=== PATIENT | male | born 1960 | race Caucasian/White ===

== ENCOUNTER → 2023-07-04 06:24 | Day surgery (SDC) | payer BC, SELFPAY | LOC: GI 06:24 | PROVIDERS: ATTENDING PHYSICIAN Internal Medicine | DX: K21.00 Gastro-esophageal reflux disease with esophagitis, without bleeding (principal); K44.9 Diaphragmatic hernia without obstruction or gangrene; K22.70 Barrett's esophagus without dysplasia; K22.89 Other specified disease of esophagus; K29.60 Other gastritis without bleeding | CPT/HCPCS: 43239; 88305; 88342 ==

== ENCOUNTER → 2023-07-24 08:37 | Outpatient (REF) | payer BC, SELFPAY ==
[2023-07-24 10:20] LABS: ALT (SGPT) 27 U/L (0-50); AST (SGOT) 29 U/L (17-59); Albumin 4.1 g/dl (3.5-5.0); Alkaline Phosphatase 80 U/L (38-126); Blood Urea Nitrogen 44 mg/dl (9-20); Calcium 9.1 mg/dl (8.4-10.2); Carbon Dioxide 29 mmol/L (22-30); Chloride 103 mmol/L (98-107); Glucose 197 mg/dl (70-99); Sodium 138 mmol/L (135-145); Total Bilirubin 0.6 mg/dl (0.2-1.3); Total Protein 6.9 g/dl (6.3-8.2); eGFR > 60.00
[2023-07-24 11:03] LABS: Microalbumin, Random Urine 0.8 mg/dl (0.6-1.7)
[2023-07-24 13:07] LABS: Glycohemoglobin (HgbA1c) 8.3 % (4.0-5.6)
== END ==
LOC: HWLAB 08:37
PROVIDERS: ATTENDING PHYSICIAN Family Medicine; REFERRING PHYSICIAN Internal Medicine Interventional Cardiology
DX: E11.69 Type 2 diabetes mellitus with other specified complication (principal)
CPT/HCPCS: 36415; 80053; 82043; 82570; 83036

== ENCOUNTER → 2023-09-13 07:43 | Outpatient (REF) | payer BC, SELFPAY | LOC: HWRAD 07:43 | PROVIDERS: ATTENDING PHYSICIAN Nurse Practitioner; FAMILY PHYSICIAN Family Medicine; REFERRING PHYSICIAN Urology | DX: N50.82 Scrotal pain (principal) | CPT/HCPCS: 76870; 93976 ==

== ENCOUNTER 2023-10-19 12:47 | Emergency (ER) | payer BC, SELFPAY ==
[2023-10-19 12:50] VITALS: BP 155/108
[2023-10-19 13:15] LABS: Urine Albumin Negative (Neg - Trace); Urine Bilirubin Negative (Negative); Urine Character Clear (Clear); Urine Color Yellow; Urine Glucose Negative (Negative); Urine Ketone Negative (Negative); Urine Leukocyte Negative (Negative); Urine Nitrite Negative (Negative); Urine Occult Blood Negative (Negative); Urine Urobilinogen Negative (Neg - 1+)
[2023-10-19 13:16] LABS: % Basophils 0.8 % (0-2); % Eosinophils 5.3 % (0-6); % Immature Granulocytes 0.6 % (0-0.5); % Lymphocytes 14.7 % (20.5-51.1); % Neutrophils 69.6 % (42.2-75.2); Absolute Basophils 0.1 10^3/uL (0-0.2); Absolute Eosinophils 0.6 10^3/uL (0-0.7); Absolute Immature Granulocytes 0.1 10^3/uL (0-0.05); Absolute Lymphocytes 1.8 10^3/uL (1.2-3.4); Absolute Monocytes 1.1 10^3/uL (0.1-0.6); Absolute Neutrophils 8.4 10^3/uL (1.4-6.5); Hematocrit 52.1 % (39.0-52.0); Hemoglobin 17.5 g/dL (13.0-18.0); Mean Corp Hgb Conc. 33.6 g/dL (33.0-37.0); Mean Corpuscular Hgb 30.1 pg (27.0-31.0); Mean Corpuscular Volume 89.7 fL (80.0-94.0); Mean Platelet Volume 9.8 fL (7.4-10.4); Nucleated Red Blood Cells % 0 % (-); Platelet Count 232 10^3/uL (130-400); Red Blood Cell Count 5.81 10^6/uL (4.70-6.10); Red Cell Dist. Width 13.8 % (11.5-14.5); White Blood Cell Count 12.1 10^3/uL (4.8-10.8)
[2023-10-19 13:26] LABS: ALT (SGPT) 24 U/L (0-50); AST (SGOT) 29 U/L (17-59); Albumin 4.2 g/dl (3.5-5.0); Alkaline Phosphatase 83 U/L (38-126); Blood Urea Nitrogen 36 mg/dl (9-20); Calcium 9.7 mg/dl (8.4-10.2); Carbon Dioxide 28 mmol/L (22-30); Chloride 101 mmol/L (98-107); Glucose 139 mg/dl (70-99); Lipase 65 U/L (23-300); Sodium 137 mmol/L (135-145); Total Bilirubin 0.9 mg/dl (0.2-1.3); Total Protein 7.4 g/dl (6.3-8.2); eGFR > 60.00
[2023-10-19 14:40] VITALS: BMI 38.5
[2023-10-19 14:41] VITALS: BP 136/86
[2023-10-19] MEDS: NSS 1000 IV (15:16)
--- NOTE | 2023-10-19 16:35 | ED.GENMED ---
History of Present Illness
General
Chief Complaint: Flank Pain
Time Seen by Provider: 10/19/23 14:56
Travel History
Have you had any contact with someone who has COVID-19?: No
Do you have any symptoms of coronavirus? Fever > 100 degrees, chills, cough, shortness of breath, sore throat, loss of taste or smell, muscle aches, or headache?: No
History of Present Illness
History of Present Illness:
62-year-old male with remote history of renal cell cancer status post partial nephrectomy presents to the emergency department for evaluation of right flank pain ongoing for the past 2 to 3 days. Pain is intermittent in nature. He is concerned
predominantly because it is on the same side as his partial nephrectomy. Denies any dysuria or hematuria. No fevers, chills, or night sweats.
Past History
Past History
ED Past Medical History: Arrthythmia (History of PVCs), Asthma, CAD, Cancer (Renal carcinoma), GERD, HTN, Hypercholesterolemia, Other (Diverticulitis w/ bladder fistual 2007) and Other (Pneumonia, sleep apnea)
ED Past Surgical History: Bowel resection, Cardiac, Cholecystectomy, Orthopedic, Tonsilectomy and Urological
Patient has exhibited threatening behavior?: No
PSI?: No
Social History
Tobacco: Non-smoker
Alcohol: Occasional
Drug: None
Personal: Single
Living: with family
Employment: Employed
Family History
Family History: Early CAD
Review of Systems
Review of Systems
Allergies reviewed?: Yes
All Other Systems: ROS reviewed and negative except as documented in HPI and ROS
Phy Exam
Physical Exam
Physical Exam:
GEN: Well appearing, NAD, WDWN
HEENT: Oral mucosa moist, no scleral icterus
Cardiac: Regular rate
Lung: No respiratory distress, no tachypnea
Abdomen: Soft, nontender, no rigidity, no CVA tenderness bilaterally.
MSK: No gross deformity or injuries. Mild tenderness along the right thoracic paraspinous musculature/latissimus dorsi, the right Lat appears to be swollen and stiff for than the contralateral side
Skin: Good color, no pallor or jaundice, no rashes
Neuro: AO x3, moves all extremities freely
Psych: Calm, cooperative
Course
Orders/Labs/Results
Orders:
Orders
10/19/23 13:00
Complete Blood Count/With Diff Urgent
Comprehensive Metabolic Panel Urgent
Lipase Urgent
10/19/23 13:05
Urinalysis Reflex To Culture Urgent
Date Specimen was Collected: 10/19/23
Time Specimen was Collected: 12:52
10/19/23 15:05
CT Abd/Pel (IV only)-DH only Urgent
Comment:
Reason For Exam: R flank pain prior renal CA
0.9% Sodium Chloride 1000 ml [Nss] 1,000 ml IV BOLUS
Abnormal Lab Results
10/19/23
13:00
WBC 12.1 H 10^3/uL
(4.8-10.8)
Hct 52.1 H %
(39.0-52.0)
Abs Immat Gran (auto) 0.1 H 10^3/uL
(0-0.05)
Absolute Neuts (auto) 8.4 H 10^3/uL
(1.4-6.5)
Absolute Monos (auto) 1.1 H 10^3/uL
(0.1-0.6)
Immature Gran % 0.6 H %
(0-0.5)
Lymphocytes % 14.7 L %
(20.5-51.1)
BUN 36 H mg/dl
(9-20)
Glucose 139 H mg/dl
(70-99)
10/19/23 13:00
10/19/23 13:00
Vital Signs
Initial and Last Documented VS:
Initial Vital Signs
Temp Pulse Resp BP Pulse Ox
99.1 F 70 18 155/108 93
10/19/23 12:50 10/19/23 12:50 10/19/23 12:50 10/19/23 12:50 10/19/23 12:50
Last Documented Vital Signs
Temp Pulse Resp BP Pulse Ox
99.1 F 60 16 120/89 95
10/19/23 12:50 10/19/23 16:49 10/19/23 16:49 10/19/23 16:49 10/19/23 16:49
MDM/Problems Addressed
MDM/Problems Addressed:
Workup was unrevealing, urinalysis negative. No abnormalities associated with the right kidney, discussed supportive care, likely musculoskeletal in origin
*Critical Care Note
Total Time (30-74mins, 75-104mins- exclusive of procedures): Not Applicable
ED Attending Note
-
Portions of this chart may have been created with voice recognition software.� Occasional wrong word or��sound alike� substitutions may have occurred due to the inherent limitations of voice recognition software.
Discharge Plan
Departure
Patient Disposition: Home (Routine Discharge)
Date of Disposition: 10/19/23
Time of Disposition: 16:35
Patient with high blood pressure during this ER visit?: No
Discharge Problem:
Acute right flank pain
Instructions: Back Muscle Strain (DC)
Prescriptions:
No Action
atorvastatin 20 MG tablet
20 mg PO DAILY@1200
aspirin 81 MG tablet,delayed release (DR/EC)
81 mg PO DAILY@1200
albuterol sulfate 2.5 MG/3 ML solution for nebulization
2.5 mg inhalation R Q4HPRN PRN (Reason: cough/wheeze) Qty: 20 0RF
pantoprazole 40 MG tablet,delayed release (DR/EC)
40 mg PO BID
montelukast 10 MG tablet
10 mg PO DAILY@1200
albuterol sulfate 1 PUFF HFA aerosol inhaler
2 puff inhalation R Q4HPRN PRN (Reason: sob/ wheeze)
atenolol 50 MG tablet
100 mg PO DAILY@1200
melatonin 5 MG tablet
5 mg PO DAILY@1200
turmeric root extract 500 MG capsule
1,000 mg PO DAILY@1200
multivitamin with folic acid [Tab-A-Adri] 1 TABLET tablet
1 tab PO DAILY@1200
Breztri Aerosphere 10.7 GM HFA aerosol inhaler
2 puff inhalation R BID
chlorthalidone 25 mg Tablet
12.5 mg PO DAILY@1200
olmesartan 40 mg Tablet
40 mg PO DAILY@1200
Xiidra 5 % Dropperette
1 drp BOTH EYES BID
Metamucil Fiber Singles 1 PACKET powder in packet
1 packet PO DAILY@1200
Saline Nasal Mist 0.65 % Aerosol,[place]
2 spray INTRANASAL PRN PRN (Reason: Dyness)
diphenhydramine HCl [Benadryl] 25 mg Capsule
25 mg PO HS PRN (Reason: sleep)
acetaminophen-codeine [acetaminophen-codeine] 300-30 mg tablet
1 - 2 tab PO Q4HPRN PRN (Reason: Mod-severe pain) Qty: 30 0RF
methylprednisolone [Medrol (Wagner)] 4 mg tablets,dose pack
4 tab PO . DIRECT Qty: 1 0RF
Rx Instructions:
Start 07/04/2019
doxycycline hyclate 100 mg tablet
100 mg PO BID 10 Days Qty: 20 0RF
methylprednisolone [Medrol (Wagner)] 4 mg tablets,dose pack
See Rx Instructions .ROUTE .COMPLEX Qty: 21 0RF
Rx Instructions:
orally per package directions
Referrals:
Mario Cmobs MD [Family Provider] -
Activity Restrictions/Additional Instructions:
Take anti-inflammatories as needed for pain and gently stretch the area frequently. The symptoms are most likely muscular. You have a cyst on the right kidney that was seen on MRI previously and is felt to be benign
Interventions
Interventions:
*Risk Screen - Suicide Last Done: 10/19/23 14:35
*General Assessment Last Done: 10/19/23 14:40
*Neglect/Abuse Screening Last Done: 10/19/23 14:35
ED- Fall Risk Assessment Last Done: 10/19/23 17:04
*ED COVID-19 Vaccine History Last Done: 10/19/23 14:35
*Nursing Disposition Last Done: 10/19/23 17:04
BP-Twavof-Ovstpwwtnf Assessment Last Done: 10/19/23 14:35
ED-Male Genitourinary Assessment Last Done: 10/19/23 14:35
Discharge Date and Time
Discharge Date/Time: 10/19/23 17:04
Print Language: URUGUAYAN
[2023-10-19 16:49] VITALS: BP 120/89
== END 2023-10-19 17:04 | disposition home or self-care (01) ==
LOC: EMR 12:47
PROVIDERS: Emergency Medicine; EMERGENCY PHYSICIAN Emergency Medicine; FAMILY PHYSICIAN Family Medicine
DX: R10.9 Unspecified abdominal pain (principal); I25.10 Atherosclerotic heart disease of native coronary artery without angina pectoris; E78.00 Pure hypercholesterolemia, unspecified; K21.9 Gastro-esophageal reflux disease without esophagitis; I10 Essential (primary) hypertension; G47.30 Sleep apnea, unspecified; J45.909 Unspecified asthma, uncomplicated; K57.92 Diverticulitis of intestine, part unspecified, without perforation or abscess without bleeding; Z85.528 Personal history of other malignant neoplasm of kidney; Z87.01 Personal history of pneumonia (recurrent); Z90.5 Acquired absence of kidney; Z90.49 Acquired absence of other specified parts of digestive tract; Z88.1 Allergy status to other antibiotic agents; Z88.8 Allergy status to other drugs, medicaments and biological substances; Z91.048 Other nonmedicinal substance allergy status; Z79.82 Long term (current) use of aspirin
CPT/HCPCS: 99285; 96360; 74177; 80053; 81003; 83690; 85025; Q9967

== ENCOUNTER → 2023-11-11 07:02 | Outpatient (REF) | payer BC, SELFPAY ==
[2023-11-11 07:56] LABS: ALT (SGPT) 21 U/L (0-50); AST (SGOT) 26 U/L (17-59); Albumin 4.2 g/dl (3.5-5.0); Alkaline Phosphatase 79 U/L (38-126); Blood Urea Nitrogen 46 mg/dl (9-20); Calcium 9.5 mg/dl (8.4-10.2); Carbon Dioxide 26 mmol/L (22-30); Chloride 103 mmol/L (98-107); Glucose 122 mg/dl (70-99); HDL Cholesterol 38 mg/dl; LDL Cholesterol, Calculated 60 mg/dl; Potassium 3.9 mmol/L (3.5-5.1); Sodium 140 mmol/L (135-145); Total Bilirubin 0.9 mg/dl (0.2-1.3); Total Cholesterol 122 mg/dl (50-199); Total Protein 7.2 g/dl (6.3-8.2); Triglyceride 121 mg/dl (10-149); Very Low Density Lipoprotein 24 mg/dl (0-30); eGFR > 60.00
[2023-11-11 08:27] LABS: PSA, Total - Screen 0.55 ng/ml (0.0-4.0)
[2023-11-11 08:28] LABS: % Basophils 1.1 % (0-2); % Eosinophils 8.9 % (0-6); % Immature Granulocytes 0.5 % (0-0.5); % Lymphocytes 21.2 % (20.5-51.1); % Monocytes 8.4 % (1.7-9.3); % Neutrophils 59.9 % (42.2-75.2); Absolute Basophils 0.1 10^3/uL (0-0.2); Absolute Eosinophils 0.9 10^3/uL (0-0.7); Absolute Immature Granulocytes 0.1 10^3/uL (0-0.05); Absolute Lymphocytes 2.2 10^3/uL (1.2-3.4); Absolute Monocytes 0.9 10^3/uL (0.1-0.6); Absolute Neutrophils 6.3 10^3/uL (1.4-6.5); Hematocrit 54.2 % (39.0-52.0); Hemoglobin 17.8 g/dL (13.0-18.0); Mean Corp Hgb Conc. 32.8 g/dL (33.0-37.0); Mean Corpuscular Volume 91.4 fL (80.0-94.0); Mean Platelet Volume 10.2 fL (7.4-10.4); Nucleated Red Blood Cells % 0 % (-); Platelet Count 189 10^3/uL (130-400); Red Blood Cell Count 5.93 10^6/uL (4.70-6.10); White Blood Cell Count 10.6 10^3/uL (4.8-10.8)
[2023-11-11 11:05] LABS: Glycohemoglobin (HgbA1c) 6.4 % (4.0-5.6)
== END ==
LOC: REG 07:02
PROVIDERS: ATTENDING PHYSICIAN Urology; FAMILY PHYSICIAN Family Medicine
DX: E11.69 Type 2 diabetes mellitus with other specified complication (principal); Z00.00 Encounter for general adult medical examination without abnormal findings; Z85.528 Personal history of other malignant neoplasm of kidney; N28.1 Cyst of kidney, acquired
CPT/HCPCS: 36415; 80053; 80061; 83036; 85025; G0103

== ENCOUNTER → 2023-11-22 07:35 | Outpatient (REF) | payer BC, SELFPAY | LOC: PAVMRI 07:35 | PROVIDERS: ATTENDING PHYSICIAN Urology; FAMILY PHYSICIAN Family Medicine | DX: N28.1 Cyst of kidney, acquired (principal); Z85.528 Personal history of other malignant neoplasm of kidney | CPT/HCPCS: 74183; A9575 ==

== ENCOUNTER → 2023-12-19 08:18 | Outpatient (REF) | payer BC, SELFPAY ==
--- NOTE | 2023-12-19 09:50 | CARDSERVLU ---
Addendum entered by Hilda Gorman RN 12/19/23 11:07:
INT removed and dsg applied. Pressure held. No bleeding noted.
Original Note:
Echocardiogram with Lumason completed after protocol screening completed. Allergies verified.
Patent IV site: __left upper arm inserted by IV team___
IV site flushed with 0.9% NaCl pre and post administration.
Diluted bolus method utilized to enhance visualization of ventricular [place].
Total volume given: ___4.0 mL
Patient tolerated all procedures well without complications.
== END ==
LOC: RCS 08:18
PROVIDERS: ATTENDING PHYSICIAN Internal Medicine Interventional Cardiology; FAMILY PHYSICIAN Family Medicine
DX: I10 Essential (primary) hypertension (principal); I25.10 Atherosclerotic heart disease of native coronary artery without angina pectoris; R29.818 Other symptoms and signs involving the nervous system
CPT/HCPCS: 93306; Q9950

== ENCOUNTER → 2024-02-10 07:07 | Outpatient (REF) | payer BC, SELFPAY ==
[2024-02-10 08:54] LABS: % Basophils 1.2 % (0-2); % Eosinophils 6.9 % (0-6); % Immature Granulocytes 0.6 % (0-0.5); % Lymphocytes 21.3 % (20.5-51.1); % Monocytes 8.4 % (1.7-9.3); % Neutrophils 61.6 % (42.2-75.2); Absolute Basophils 0.1 10^3/uL (0-0.2); Absolute Eosinophils 0.6 10^3/uL (0-0.7); Absolute Immature Granulocytes 0.1 10^3/uL (0-0.05); Absolute Lymphocytes 1.9 10^3/uL (1.2-3.4); Absolute Monocytes 0.8 10^3/uL (0.1-0.6); Absolute Neutrophils 5.6 10^3/uL (1.4-6.5); Hematocrit 51.8 % (39.0-52.0); Hemoglobin 17.9 g/dL (13.0-18.0); Mean Corp Hgb Conc. 34.6 g/dL (33.0-37.0); Mean Corpuscular Hgb 30.9 pg (27.0-31.0); Mean Corpuscular Volume 89.3 fL (80.0-94.0); Mean Platelet Volume 9.9 fL (7.4-10.4); Nucleated Red Blood Cells % 0 % (-); Platelet Count 171 10^3/uL (130-400); Red Cell Dist. Width 13.7 % (11.5-14.5); White Blood Cell Count 9.1 10^3/uL (4.8-10.8)
[2024-02-10 09:11] LABS: ALT (SGPT) 24 U/L (0-50); AST (SGOT) 25 U/L (17-59); Albumin 4.1 g/dl (3.5-5.0); Alkaline Phosphatase 86 U/L (38-126); Blood Urea Nitrogen 32 mg/dl (9-20); Calcium 9.4 mg/dl (8.4-10.2); Carbon Dioxide 30 mmol/L (22-30); Chloride 99 mmol/L (98-107); Glucose 151 mg/dl (70-99); Sodium 139 mmol/L (135-145); Total Protein 6.8 g/dl (6.3-8.2); eGFR > 60.00
[2024-02-10 09:42] LABS: PSA, Total - Screen 0.52 ng/ml (0.0-4.0)
[2024-02-10 11:00] LABS: Glycohemoglobin (HgbA1c) 7.4 % (4.0-5.6)
== END ==
LOC: REG 07:07
PROVIDERS: ATTENDING PHYSICIAN Urology; FAMILY PHYSICIAN Family Medicine; REFERRING PHYSICIAN Internal Medicine Interventional Cardiology
DX: Z85.528 Personal history of other malignant neoplasm of kidney (principal); E11.69 Type 2 diabetes mellitus with other specified complication; E78.00 Pure hypercholesterolemia, unspecified
CPT/HCPCS: 36415; 80053; 83036; 85025; G0103

== ENCOUNTER 2024-03-06 00:55 | Emergency (ER) | payer BC, SELFPAY ==
[2024-03-06 00:58] VITALS: BP 171/107
--- NOTE | 2024-03-06 04:07 | DOWNTIME ---
There was a [employer] Downtime on 02/07/2024 from 0100 to 02/07/2024 at 0300. Downtime documentation of patient's care, including medication administrations, has been reconciled in the electronic record per guidelines. Refer to the
patient's paper chart under the miscellaneous tab to see printed paper medication records and downtime forms.
--- NOTE | 2024-03-06 16:53 | ED.MUSCINJ ---
HPI-Injury
General
Chief Complaint: Musculo-Skeletal Complaint
Source: patient
Exam Limitations: none
Nursing documentation reviewed up to this point in time: agreed with
History of Present Illness-Injury
Is this injury a work related problem?: No
Is pt an associate of [facility]?: No
Initial Injury comments:
Patient to ED with complaint of left knee pain. Reports intermittent mild discomfort over the past few days. Today difficulty walking due to pain. Denies fever/chills, recent illness. No history of trauma. Brought self to ED for eval.
Past History
Past History
ED Past Medical History: Arrthythmia (History of PVCs), Asthma, CAD, Cancer (Renal carcinoma), GERD, HTN, Hypercholesterolemia, Other (Diverticulitis w/ bladder fistual 2007) and Other (Pneumonia, sleep apnea)
ED Past Surgical History: Bowel resection, Cardiac, Cholecystectomy, Orthopedic, Tonsilectomy and Urological
Patient has exhibited threatening behavior?: No
PSI?: No
Social History
Tobacco: Non-smoker
Alcohol: Occasional
Drug: None
Personal: Single
Living: with family
Employment: Employed
Family History
Family History: Early CAD
Review of Systems
Review of Systems
Allergies reviewed?: Yes
All Other Systems: ROS reviewed and negative except as documented in HPI and ROS
Constitutional: Reports no symptoms
Musculoskeletal: Reports joint pain (Pain to leflt knee)
Skin: Reports no symptoms
Neurological: Reports no symptoms
Psychiatric: Reports no symptoms
Musculoskeletal Injury Exam
Musculoskeletal Injury Exam
Left Medial Knee:
Pain with Movement?: Moderate
Tender to palpation?: Moderate
Soft tissue swelling?: None
External deformity and angulation?: None
Joint effusion?: None
Contusion?: None
Hematoma-local bleeding into tissue?: None
Strain- Sprain- Tear (Connective tissue injury)?: Moderate
Crepitus with movement?: No
Joint instability?: No
Malalignment/deformity?: No
Range of motion: Limited
Distal skin color and temperature: normal-warm & good color
Capillary Refill: normal
Normal distal neurovascular exam?: Yes
Phy Exam
General Physical Exam
General Presentation: well appearing and mild distress
General age: appears stated age
General Skin: warm and dry
General Habitus: normal
General Mental: alert
General Hydration: appears well hydrated
Musculoskeletal Exam
Musculoskeletal Exam: neuro vasc intact
Skin Exam
Skin Exam: normal color, warm/dry and no rash
Psychiatric Exam
Psychiatric Exam: normal mood/affect
Injury Course
Orders/Labs/Results
Orders:
Orders
03/06/24 01:30
CR Knee - Left 4 Or More View* Urgent
Reason For Exam: pain
*Radiology
Radiology exam reviewed: radiology read reviewed
*Pulse Oximetry
Patient hypoxic: no
*Critical Care Note
Total Time (30-74mins, 75-104mins- exclusive of procedures): Not Applicable
ED Attending Note
-
Portions of this chart may have been created with voice recognition software.� Occasional wrong word or��sound alike� substitutions may have occurred due to the inherent limitations of voice recognition software.
Discharge Plan
Departure
Patient Disposition: Home (Routine Discharge)
Patient with high blood pressure during this ER visit?: No
Condition: Good
Covid-19: Not Applicable
Discharge Problem:
Knee pain
Instructions: Knee Pain (DC), Knee Immobilizer (DC), Ibuprofen, Using Cold for Pain
Prescriptions:
No Action
atorvastatin 20 MG tablet
20 mg PO DAILY@1200
aspirin 81 MG tablet,delayed release (DR/EC)
81 mg PO DAILY@1200
albuterol sulfate 2.5 MG/3 ML solution for nebulization
2.5 mg inhalation R Q4HPRN PRN (Reason: cough/wheeze) Qty: 20 0RF
pantoprazole 40 MG tablet,delayed release (DR/EC)
40 mg PO BID
montelukast 10 MG tablet
10 mg PO DAILY@1200
albuterol sulfate 1 PUFF HFA aerosol inhaler
2 puff inhalation R Q4HPRN PRN (Reason: sob/ wheeze)
atenolol 50 MG tablet
100 mg PO DAILY@1200
melatonin 5 MG tablet
5 mg PO DAILY@1200
turmeric root extract 500 MG capsule
1,000 mg PO DAILY@1200
multivitamin with folic acid [Tab-A-Adri] 1 TABLET tablet
1 tab PO DAILY@1200
Breztri Aerosphere 10.7 GM HFA aerosol inhaler
2 puff inhalation R BID
chlorthalidone 25 mg Tablet
12.5 mg PO DAILY@1200
olmesartan 40 mg Tablet
40 mg PO DAILY@1200
Xiidra 5 % Dropperette
1 drp BOTH EYES BID
Metamucil Fiber Singles 1 PACKET powder in packet
1 packet PO DAILY@1200
Saline Nasal Mist 0.65 % Aerosol,[place]
2 spray INTRANASAL PRN PRN (Reason: Dyness)
diphenhydramine HCl [Benadryl] 25 mg Capsule
25 mg PO HS PRN (Reason: sleep)
acetaminophen-codeine [acetaminophen-codeine] 300-30 mg tablet
1 - 2 tab PO Q4HPRN PRN (Reason: Mod-severe pain) Qty: 30 0RF
methylprednisolone [Medrol (Wagner)] 4 mg tablets,dose pack
4 tab PO . DIRECT Qty: 1 0RF
Rx Instructions:
Start 07/04/2019
doxycycline hyclate 100 mg tablet
100 mg PO BID 10 Days Qty: 20 0RF
methylprednisolone [Medrol (Wagner)] 4 mg tablets,dose pack
See Rx Instructions .ROUTE .COMPLEX Qty: 21 0RF
Rx Instructions:
orally per package directions
Referrals:
PRIVATE,PHYSICIAN [Family Provider] -
Activity Restrictions/Additional Instructions:
Follow up with your orthopedic provider through [facility].
Interventions
Interventions:
*Risk Screen - Suicide Last Done: 03/06/24 00:58
*General Assessment Last Done: 03/06/24 00:58
*Neglect/Abuse Screening Last Done: 03/06/24 00:58
*Nursing Disposition Last Done: 03/06/24 04:13
Discharge Date and Time
Discharge Date/Time: 03/06/24 03:00
Print Language: KENYAN
== END 2024-03-06 03:00 | disposition home or self-care (01) ==
LOC: EMR 00:55
PROVIDERS: EMERGENCY PHYSICIAN Student in an Organized Health Care Education/Training Program
DX: M25.562 Pain in left knee (principal); I49.3 Ventricular premature depolarization; J45.909 Unspecified asthma, uncomplicated; I25.10 Atherosclerotic heart disease of native coronary artery without angina pectoris; K21.9 Gastro-esophageal reflux disease without esophagitis; I10 Essential (primary) hypertension; E78.00 Pure hypercholesterolemia, unspecified; G47.30 Sleep apnea, unspecified; Z82.49 Family history of ischemic heart disease and other diseases of the circulatory system; Z85.528 Personal history of other malignant neoplasm of kidney; Z90.49 Acquired absence of other specified parts of digestive tract
CPT/HCPCS: 99283; 73564

== ENCOUNTER → 2024-05-18 06:54 | Outpatient (REF) | payer BC, SELFPAY | LOC: MRI 3T 06:54 | PROVIDERS: ATTENDING PHYSICIAN Physician Assistant Surgical; FAMILY PHYSICIAN Family Medicine | DX: M54.2 Cervicalgia (principal); M54.12 Radiculopathy, cervical region; M50.10 Cervical disc disorder with radiculopathy, unspecified cervical region | CPT/HCPCS: 72141 ==

== ENCOUNTER → 2024-05-31 07:39 | Outpatient (REF) | payer BC, SELFPAY ==
[2024-05-31 08:50] LABS: ALT (SGPT) 27 U/L (0-50); AST (SGOT) 28 U/L (17-59); Albumin 4.6 g/dl (3.5-5.0); Alkaline Phosphatase 82 U/L (38-126); Blood Urea Nitrogen 31 mg/dl (9-20); Calcium 9.3 mg/dl (8.4-10.2); Carbon Dioxide 31 mmol/L (22-30); Chloride 97 mmol/L (98-107); Glucose 130 mg/dl (70-99); Potassium 3.9 mmol/L (3.5-5.1); Sodium 138 mmol/L (135-145); Total Bilirubin 1.2 mg/dl (0.2-1.3); Total Protein 7.5 g/dl (6.3-8.2); eGFR > 60.00
[2024-05-31 08:56] LABS: Microalbumin, Random Urine 1.2 mg/dl (0.6-1.7); Microalbumin/creatinine Ratio 12.2 mg/g
[2024-05-31 12:14] LABS: Glycohemoglobin (HgbA1c) 7.3 % (4.0-5.6)
== END ==
LOC: REG 07:39
PROVIDERS: ATTENDING PHYSICIAN Family Medicine
DX: E11.69 Type 2 diabetes mellitus with other specified complication (principal)
CPT/HCPCS: 36415; 80053; 82043; 82570; 83036

== ENCOUNTER 2024-07-11 07:31 | Emergency (ER) | payer BC, SELFPAY ==
[2024-07-11 07:41] VITALS: BP 144/87
[2024-07-11 08:39] VITALS: BP 155/92
[2024-07-11 08:48] LABS: % Basophils 1.2 % (0-2); % Eosinophils 7.8 % (0-6); % Immature Granulocytes 1.3 % (0-0.5); % Lymphocytes 19.9 % (20.5-51.1); % Monocytes 9.2 % (1.7-9.3); % Neutrophils 60.6 % (42.2-75.2); Absolute Basophils 0.1 10^3/uL (0-0.2); Absolute Eosinophils 0.8 10^3/uL (0-0.7); Absolute Immature Granulocytes 0.1 10^3/uL (0-0.05); Absolute Lymphocytes 2.2 10^3/uL (1.2-3.4); Absolute Neutrophils 6.6 10^3/uL (1.4-6.5); Hematocrit 52.3 % (39.0-52.0); Hemoglobin 18.1 g/dL (13.0-18.0); Mean Corp Hgb Conc. 34.6 g/dL (33.0-37.0); Mean Corpuscular Hgb 31.5 pg (27.0-31.0); Mean Corpuscular Volume 91.1 fL (80.0-94.0); Mean Platelet Volume 9.7 fL (7.4-10.4); Nucleated Red Blood Cells % 0 % (-); Platelet Count 210 10^3/uL (130-400); Red Blood Cell Count 5.74 10^6/uL (4.70-6.10); Red Cell Dist. Width 13.2 % (11.5-14.5); White Blood Cell Count 10.8 10^3/uL (4.8-10.8)
[2024-07-11 09:00] VITALS: BP 143/83
[2024-07-11 09:02] LABS: ALT (SGPT) 25 U/L (0-50); AST (SGOT) 23 U/L (17-59); Albumin 4.2 g/dl (3.5-5.0); Alkaline Phosphatase 78 U/L (38-126); Blood Urea Nitrogen 42 mg/dl (9-20); Calcium 9.3 mg/dl (8.4-10.2); Carbon Dioxide 28 mmol/L (22-30); Chloride 100 mmol/L (98-107); Glucose 201 mg/dl (70-99); Potassium 4.1 mmol/L (3.5-5.1); Sodium 137 mmol/L (135-145); Total Bilirubin 0.9 mg/dl (0.2-1.3); eGFR > 60.00
--- NOTE | 2024-07-11 09:09 | ED.GENMED ---
History of Present Illness
General
Chief Complaint: Dizziness
Time Seen by Provider: 07/11/24 08:08
History of Present Illness
History of Present Illness:
Patient is a 63-year-old man presenting to the emerged department with dizziness that is resolved. Patient states that he was about to go work his overnight shift when he put his head back to put eyedrops in. Soon as he put his head back he felt
as if the room was spinning. He got up and the symptoms resolved. He was able to work without any symptoms. He states that he does feel slightly off but cannot exactly pinpoint it. No headache. No dizziness. No numbness tingling. No weakness.
No balance problems. No vision changes or hearing changes. No chest pain. No difficulty breathing. He does state that has been having significant amount of congestion and thinks that it could be contributing to the dizziness.
Past History
Past History
ED Past Medical History: Arrthythmia (History of PVCs), Asthma, CAD, Cancer (Renal carcinoma), GERD, HTN, Hypercholesterolemia, Other (Diverticulitis w/ bladder fistual 2007) and Other (Pneumonia, sleep apnea)
ED Past Surgical History: Bowel resection, Cardiac, Cholecystectomy, Orthopedic, Tonsilectomy and Urological
Patient has exhibited threatening behavior?: No
PSI?: No
Social History
Tobacco: Non-smoker
Alcohol: Occasional
Drug: None
Personal: Single
Living: with family
Employment: Employed
Family History
Family History: Early CAD
Phy Exam
Physical Exam
Physical Exam:
GENERAL: in no acute distress
HEENT: normocephalic, extraocular movements intact, moist oral mucosa
NECK: normal inspection
RESPIRATORY: no respiratory distress, clear to auscultation bilaterally
CARDIOVASCULAR: regular rate and rhythm
ABDOMEN/: soft, non-distended, non-tender to palpation, no rebound or guarding
EXTREMITIES: non-tender, no edema/swelling
NEUROLOGIC: alert and oriented x 3, cranial nerves II-XII intact, right upper extremity strength 5/5, left upper extremity strength 5/5, right lower extremity strength 5/5, left lower extremity strength 5/5, normal sensation to light touch, normal
zmvtiz-la-saaz and azte-re-zyjp, gait not tested formally
SKIN: warm
Course
Orders/Labs/Results
Orders:
Orders
07/11/24 07:55
EKG [Electrocardiogram (*1)] Urgent
Reason for Study: Chest Pain
EKG- Treatment ONCE
07/11/24 08:29
Complete Blood Count/With Diff Urgent
Comprehensive Metabolic Panel Urgent
Abnormal Lab Results
07/11/24
08:29
Hgb 18.1 H g/dL
(13.0-18.0)
Hct 52.3 H %
(39.0-52.0)
MCH 31.5 H pg
(27.0-31.0)
Abs Immat Gran (auto) 0.1 H 10^3/uL
(0-0.05)
Absolute Neuts (auto) 6.6 H 10^3/uL
(1.4-6.5)
Absolute Monos (auto) 1.0 H 10^3/uL
(0.1-0.6)
Absolute Eos (auto) 0.8 H 10^3/uL
(0-0.7)
Immature Gran % 1.3 H %
(0-0.5)
Lymphocytes % 19.9 L %
(20.5-51.1)
Eosinophils % 7.8 H %
(0-6)
BUN 42 H mg/dl
(9-20)
Glucose 201 H mg/dl
(70-99)
07/11/24 08:29
07/11/24 08:29
Vital Signs
Initial and Last Documented VS:
Initial Vital Signs
Temp Pulse Resp BP Pulse Ox
99.3 F 78 18 144/87 97
07/11/24 07:41 07/11/24 07:41 07/11/24 07:41 07/11/24 07:41 07/11/24 07:41
Last Documented Vital Signs
Temp Pulse Resp BP Pulse Ox
99.3 F 78 18 144/87 97
07/11/24 07:41 07/11/24 07:41 07/11/24 07:41 07/11/24 07:41 07/11/24 07:41
MDM/Problems Addressed
Differential Diagnosis Includes:
Patient is a 63-year-old man presenting to the emergency department dizziness that since resolved. Vitals unremarkable and exam shows no neurodeficits. History and exam is most consistent with peripheral cause of dizziness. It is positional and
new onset and stopping was abrupt. Likely BP PV versus secondary to the congestion. History and exam not consistent with central cause of vertigo such as stroke or tumor or carotid/vertebral artery problems. Blood work was obtained. His blood
sugar is slightly elevated. He does state that he has been followed by his primary care doctor. He is not on any medications just yet. Patient will follow-up with his PCP regarding elevated blood sugar today. EKG per my interpretation normal
sinus rhythm. I did consider obtaining a CT scan however patient is asymptomatic at this time and symptoms were produced by specific motion. I did educate patient on the Alok maneuver. Will also send patient home with prescription for meclizine
in case symptoms were to not improve after the maneuver. All questions answered. Patient stable for discharge at this time
*Critical Care Note
Total Time (30-74mins, 75-104mins- exclusive of procedures): Not Applicable
ED Attending Note
-
Portions of this chart may have been created with voice recognition software.� Occasional wrong word or��sound alike� substitutions may have occurred due to the inherent limitations of voice recognition software.
Discharge Plan
Departure
Patient Disposition: Home (Routine Discharge)
Date of Disposition: 07/11/24
Time of Disposition: 09:07
Patient with high blood pressure during this ER visit?: No
Discharge Problem:
Dizziness, Elevated blood sugar
Instructions: Vertigo (a Type of Dizziness) (DC), Exercises (maneuvers) for benign paroxysmal positional vertigo
Prescriptions:
New
meclizine 25 mg tablet
25 mg PO BID PRN (Reason: dizziness) Qty: 14 0RF
No Action
atorvastatin 20 MG tablet
20 mg PO DAILY@1200
aspirin 81 MG tablet,delayed release (DR/EC)
81 mg PO DAILY@1200
albuterol sulfate 2.5 MG/3 ML solution for nebulization
2.5 mg inhalation R Q4HPRN PRN (Reason: cough/wheeze) Qty: 20 0RF
pantoprazole 40 MG tablet,delayed release (DR/EC)
40 mg PO BID
montelukast 10 MG tablet
10 mg PO DAILY@1200
albuterol sulfate 1 PUFF HFA aerosol inhaler
2 puff inhalation R Q4HPRN PRN (Reason: sob/ wheeze)
atenolol 50 MG tablet
100 mg PO DAILY@1200
melatonin 5 MG tablet
5 mg PO DAILY@1200
turmeric root extract 500 MG capsule
1,000 mg PO DAILY@1200
multivitamin with folic acid [Tab-A-Adri] 1 TABLET tablet
1 tab PO DAILY@1200
Breztri Aerosphere 10.7 GM HFA aerosol inhaler
2 puff inhalation R BID
chlorthalidone 25 mg Tablet
12.5 mg PO DAILY@1200
olmesartan 40 mg Tablet
40 mg PO DAILY@1200
Xiidra 5 % Dropperette
1 drp BOTH EYES BID
Metamucil Fiber Singles 1 PACKET powder in packet
1 packet PO DAILY@1200
Saline Nasal Mist 0.65 % Aerosol,[place]
2 spray INTRANASAL PRN PRN (Reason: Dyness)
diphenhydramine HCl [Benadryl] 25 mg Capsule
25 mg PO HS PRN (Reason: sleep)
acetaminophen-codeine [acetaminophen-codeine] 300-30 mg tablet
1 - 2 tab PO Q4HPRN PRN (Reason: Mod-severe pain) Qty: 30 0RF
methylprednisolone [Medrol (Wagner)] 4 mg tablets,dose pack
4 tab PO . DIRECT Qty: 1 0RF
Rx Instructions:
Start 07/04/2019
doxycycline hyclate 100 mg tablet
100 mg PO BID 10 Days Qty: 20 0RF
methylprednisolone [Medrol (Wagner)] 4 mg tablets,dose pack
See Rx Instructions .ROUTE .COMPLEX Qty: 21 0RF
Rx Instructions:
orally per package directions
Interventions
Interventions:
*Risk Screen - Suicide Last Done: 07/11/24 07:41
*General Assessment Last Done: 07/11/24 07:41
*Neglect/Abuse Screening Last Done: 07/11/24 07:41
*ED COVID-19 Vaccine History Last Done: 07/11/24 07:41
Discharge Date and Time
Print Language: TELUGU
== END 2024-07-11 09:30 | disposition home or self-care (01) ==
LOC: EMR 07:31
PROVIDERS: Student in an Organized Health Care Education/Training Program; EMERGENCY PHYSICIAN Student in an Organized Health Care Education/Training Program; FAMILY PHYSICIAN Family Medicine
DX: R42 Dizziness and giddiness (principal); R73.9 Hyperglycemia, unspecified; E78.00 Pure hypercholesterolemia, unspecified; I10 Essential (primary) hypertension; G47.30 Sleep apnea, unspecified; I25.10 Atherosclerotic heart disease of native coronary artery without angina pectoris; J45.909 Unspecified asthma, uncomplicated; K21.9 Gastro-esophageal reflux disease without esophagitis; Z85.528 Personal history of other malignant neoplasm of kidney; Z90.49 Acquired absence of other specified parts of digestive tract
CPT/HCPCS: 99284; 80053; 85025; 93005

== ENCOUNTER → 2024-07-19 07:35 | Outpatient (REF) | payer BC, SELFPAY | LOC: MRI 3T 07:35 | PROVIDERS: ATTENDING PHYSICIAN Urology; FAMILY PHYSICIAN Family Medicine | DX: Z85.528 Personal history of other malignant neoplasm of kidney (principal) | CPT/HCPCS: 74183; A9575 ==

== ENCOUNTER → 2024-09-10 07:44 | Outpatient (REF) | payer BC, SELFPAY ==
[2024-09-10 08:39] LABS: % Basophils 0.9 % (0-2); % Eosinophils 6.9 % (0-6); % Immature Granulocytes 0.4 % (0-0.5); % Lymphocytes 20.5 % (20.5-51.1); % Monocytes 8.5 % (1.7-9.3); % Neutrophils 62.8 % (42.2-75.2); Absolute Basophils 0.1 10^3/uL (0-0.2); Absolute Eosinophils 0.7 10^3/uL (0-0.7); Absolute Lymphocytes 2.2 10^3/uL (1.2-3.4); Absolute Monocytes 0.9 10^3/uL (0.1-0.6); Absolute Neutrophils 6.7 10^3/uL (1.4-6.5); Hematocrit 49.8 % (39.0-52.0); Hemoglobin 17.3 g/dL (13.0-18.0); Mean Corp Hgb Conc. 34.7 g/dL (33.0-37.0); Mean Corpuscular Hgb 31.5 pg (27.0-31.0); Mean Corpuscular Volume 90.5 fL (80.0-94.0); Mean Platelet Volume 10.3 fL (7.4-10.4); Nucleated Red Blood Cells % 0 % (-); Platelet Count 183 10^3/uL (130-400); White Blood Cell Count 10.7 10^3/uL (4.8-10.8)
[2024-09-10 09:09] LABS: ALT (SGPT) 27 U/L (0-50); AST (SGOT) 23 U/L (17-59); Albumin 4.2 g/dl (3.5-5.0); Alkaline Phosphatase 90 U/L (38-126); Blood Urea Nitrogen 34 mg/dl (9-20); Calcium 9.6 mg/dl (8.4-10.2); Carbon Dioxide 27 mmol/L (22-30); Chloride 101 mmol/L (98-107); Glucose 155 mg/dl (70-99); Iron 106 ug/dl (49-181); Potassium 3.9 mmol/L (3.5-5.1); Sodium 137 mmol/L (135-145); Total Bilirubin 1.2 mg/dl (0.2-1.3); Total Protein 6.8 g/dl (6.3-8.2); eGFR > 60.00
[2024-09-10 09:19] LABS: Percent Saturation 29 % (20-50); Total Iron Binding Capacity 362 ug/dl (261-462)
[2024-09-10 09:42] LABS: Ferritin 47.1 ng/ml (17.9-464.0)
[2024-09-10 10:09] LABS: Glycohemoglobin (HgbA1c) 7.2 % (4.0-5.6)
== END ==
LOC: REG 07:44
PROVIDERS: ATTENDING PHYSICIAN Family Medicine
DX: I10 Essential (primary) hypertension (principal); E11.69 Type 2 diabetes mellitus with other specified complication; E78.00 Pure hypercholesterolemia, unspecified; D58.2 Other hemoglobinopathies
CPT/HCPCS: 36415; 80053; 82728; 83036; 83540; 83550; 85025

== ENCOUNTER → 2024-09-27 07:57 | Outpatient (REF) | payer BC, SELFPAY | LOC: CLAB 07:57 | PROVIDERS: ATTENDING PHYSICIAN Physician Assistant Medical | DX: D48.5 Neoplasm of uncertain behavior of skin (principal) | CPT/HCPCS: 88305 ==

== ENCOUNTER 2024-11-03 01:56 | Emergency (ER) | payer BC, SELFPAY ==
[2024-11-03 01:56] VITALS: BP 175/101
--- NOTE | 2024-11-03 03:42 | ED.GENMED ---
History of Present Illness
General
Chief Complaint: Eye Problems
Source: patient
Exam Limitations: none
Time Seen by Provider: 11/03/24 03:20
Nursing documentation reviewed up to this point in time: agreed with
History of Present Illness
History of Present Illness:
Note:
CHIEF COMPLAINT(S)
- Redness in the eye following use of Restasis drops
- Tingling in the scalp
- Right ear feels like it wants to drain
HISTORY OF PRESENT ILLNESS
The patient is a 63-year-old male who reports experiencing redness in the eye after the application of Restasis drops prescribed for severe dry eye. The symptoms of dry eye include crustiness and stickiness, and an cuffer mentioned the
possibility of 'eye mite' involvement. He also mentions his right ear feels like it wants to drain but is possibly related to sinus issues. About two months ago, the patient experienced a severe episode of vertigo over two nights, which a previous
physician attributed to an inner ear issue.
REVIEW OF SYSTEMS
- Eye: Severe dry eye, redness after using Restasis, crustiness, and potential 'eye mite.'
- Neurological: Tingling in the scalp, numbness in feet.
- Vascular: Occasional swelling in ankles.
- Auditory: Right ear feels like it is draining.
- Musculoskeletal: Past neck issue treated with medication.
PHYSICAL EXAM
- Eye: Hemorrhagic appearance in the affected left eye.
- Ears: Clear bilaterally without cerumen.
- Nursing notes reviewed and vital signs reviewed.
PLAN
Subconjunctival hemorrhage�nothing to do at this time. Follow-up with school bus attendant
DIFFERENTIAL DIAGNOSIS
The Differential Diagnosis includes, in no particular order and is not limited to:
1. Ocular surface disease
2. Conjunctival hemorrhage
3. Blepharitis (possibly secondary to eye mites)
4. Peripheral neuropathy
5. Venous insufficiency
6. Sinusitis
7. Inner ear condition (such as labrynthitis)
8. Allergic reaction to Restasis
9. Hypertension
10. Migraine-associated vertigo
Disposition:
DIAGNOSIS
- Subconjunctival hemorrhage (H11.32)
SUMMARY OF ENCOUNTER
63-year-old male presents with subconjunctival hemorrhage in the left eye. He had recently visited his school bus attendant for severe dry eye, and Restasis was prescribed. Following the use of Restasis, the patient experienced redness in the eye. He was
advised to stop using Restasis until a follow-up with the school bus attendant.
DISPOSITION
Discharge
PLAN
Discontinue Restasis until follow-up with an school bus attendant for further evaluation and management.
MEDICATION RECONCILIATION
- Restasis: Discontinued temporarily.
MEDICAL DECISION MAKING
The patient presented with an acute issue of subconjunctival hemorrhage, and management included stopping the current medication (Restasis) suspected of being associated with the issue. Follow-up instructions were provided to ensure proper ongoing
care with an school bus attendant. The care plan considered medication management in light of the new symptom presentation.
Past History
Past History
ED Past Medical History: Arrthythmia (History of PVCs), Asthma, CAD, Cancer (Renal carcinoma), GERD, HTN, Hypercholesterolemia, Other (Diverticulitis w/ bladder fistual 2007) and Other (Pneumonia, sleep apnea)
ED Past Surgical History: Bowel resection, Cardiac, Cholecystectomy, Orthopedic, Tonsilectomy and Urological
Patient has exhibited threatening behavior?: No
PSI?: No
Social History
Tobacco: Non-smoker
Alcohol: Occasional
Drug: None
Personal: Single
Living: with family
Employment: Employed
Family History
Family History: Early CAD
Phy Exam
General Physical Exam
General Presentation: well appearing and no apparent distress
General Skin: warm and dry
General Habitus: normal
General Mental: alert
General Hydration: appears well hydrated
ENT Exam
ENT Exam: EOMI, pharynx normal, neck supple and normocephalic
Eye Exam
Eye Exam: PERRL and EOMI
Anterior Chamber Exam: layered blood in chamber: Left
Type of Exam: fluorescein
Tonometry: Side: Left
Pressure: 14
Pulmonary Exam
Pulmonary Exam: no respiratory distress and no cough
Gastrointestinal Exam
Gastrointestinal Exam: normal bowel sounds, non tender, soft, no organomegaly, no pulsatile mass and non distended
Neurological Exam
Neurological Exam: alert, oriented x3, no motor deficits and speech normal
Musculoskeletal Exam
Musculoskeletal Exam: full ROM and no edema
Skin Exam
Skin Exam: normal color, warm/dry, no rash and no petechia
Psychiatric Exam
Psychiatric Exam: normal mood/affect
Course
Vital Signs
Initial and Last Documented VS:
Initial Vital Signs
Temp Pulse Resp BP Pulse Ox
98.1 F 97 18 175/101 99
11/03/24 01:56 11/03/24 01:56 11/03/24 01:56 11/03/24 01:56 11/03/24 01:56
Last Documented Vital Signs
Temp Pulse Resp BP Pulse Ox
98.1 F 97 18 175/101 99
11/03/24 01:56 11/03/24 01:56 11/03/24 01:56 11/03/24 01:56 11/03/24 01:56
*Pulse Oximetry
Patient hypoxic: no (99% on room air)
*Critical Care Note
Total Time (30-74mins, 75-104mins- exclusive of procedures): Not Applicable
ED Attending Note
-
Portions of this chart may have been created with voice recognition software.� Occasional wrong word or��sound alike� substitutions may have occurred due to the inherent limitations of voice recognition software.
Discharge Plan
Departure
Patient Disposition: Home (Routine Discharge)
Date of Disposition: 11/03/24
Time of Disposition: 03:51
Patient with high blood pressure during this ER visit?: Yes
Discharge Problem:
Subconjunctival hematoma
Instructions: Subconjunctival Hemorrhage, BLOOD PRESSURE
Prescriptions:
No Action
atorvastatin 20 MG tablet
20 mg PO DAILY@1200
aspirin 81 MG tablet,delayed release (DR/EC)
81 mg PO DAILY@1200
albuterol sulfate 2.5 MG/3 ML solution for nebulization
2.5 mg inhalation R Q4HPRN PRN (Reason: cough/wheeze) Qty: 20 0RF
pantoprazole 40 MG tablet,delayed release (DR/EC)
40 mg PO BID
montelukast 10 MG tablet
10 mg PO DAILY@1200
albuterol sulfate 1 PUFF HFA aerosol inhaler
2 puff inhalation R Q4HPRN PRN (Reason: sob/ wheeze)
atenolol 50 MG tablet
100 mg PO DAILY@1200
melatonin 5 MG tablet
5 mg PO DAILY@1200
turmeric root extract 500 MG capsule
1,000 mg PO DAILY@1200
multivitamin with folic acid [Tab-A-Adri] 1 TABLET tablet
1 tab PO DAILY@1200
Breztri Aerosphere 10.7 GM HFA aerosol inhaler
2 puff inhalation R BID
chlorthalidone 25 mg Tablet
12.5 mg PO DAILY@1200
olmesartan 40 mg Tablet
40 mg PO DAILY@1200
Xiidra 5 % Dropperette
1 drp BOTH EYES BID
Metamucil Fiber (aspartame) 1 PACKET powder in packet
1 packet PO DAILY@1200
Saline Nasal Mist 0.65 % Aerosol,Scobey
2 spray INTRANASAL PRN PRN (Reason: Dyness)
diphenhydramine HCl [Benadryl] 25 mg Capsule
25 mg PO HS PRN (Reason: sleep)
acetaminophen-codeine [acetaminophen-codeine] 300-30 mg tablet
1 - 2 tab PO Q4HPRN PRN (Reason: Mod-severe pain) Qty: 30 0RF
methylprednisolone [Medrol (Wagner)] 4 mg tablets,dose pack
4 tab PO . DIRECT Qty: 1 0RF
Rx Instructions:
Start 07/04/2019
doxycycline hyclate 100 mg tablet
100 mg PO BID 10 Days Qty: 20 0RF
methylprednisolone [Medrol (Wagner)] 4 mg tablets,dose pack
See Rx Instructions .ROUTE .COMPLEX Qty: 21 0RF
Rx Instructions:
orally per package directions
meclizine 25 mg tablet
25 mg PO BID PRN (Reason: dizziness) Qty: 14 0RF
Referrals:
Mario Combs MD [Family Provider, [facility]]
Activity Restrictions/Additional Instructions:
As discussed, please follow-up with your school bus attendant. Do not take the Restasis until cleared by optometry.
Thank You for choosing [facility].
It was a pleasure meeting you and taking part in your care. We hope for your continued healing and wellness.
Please read discharge instructions in their entirety. However, they are for general education and may not describe your exact diagnosis at discharge. Information on your ER visit and medical conditions were discussed with you along with appropriate
follow up information...
If indicated, please take your medications as instructed and indicated on discharge paperwork.
Please schedule a follow up appointment as directed. Call to schedule an appointment
Please return to the emergency department with ANY change in, persisting, or worsening of symptoms. If any of your symptoms do not improve, or persist, or become more severe within 6-12 hours, please return to the emergency department for further
care.
Please return to the emergency department if you develop a headache, neck pain/stiffness, fever greater than 100.4F, chest pain, shortness of breath, persistent nausea, vomiting, slurred speech, difficulty walking, numbness/tingling, weakness, signs
of infection or any other symptoms that are worrisome to you.
If you have any questions or concerns please do not hesitate to call the Hospital at or E-mail me directly at [email or web address]
Interventions
Interventions:
*Risk Screen - Suicide Last Done: 11/03/24 01:56
*General Assessment Last Done: 11/03/24 01:56
*Neglect/Abuse Screening Last Done: 11/03/24 01:56
Discharge Date and Time
Print Language: LAO
[2024-11-03 04:08] VITALS: BP 169/99
== END 2024-11-03 04:10 | disposition home or self-care (01) ==
LOC: EMR 01:56
PROVIDERS: EMERGENCY PHYSICIAN Student in an Organized Health Care Education/Training Program; FAMILY PHYSICIAN Family Medicine
DX: H11.32 Conjunctival hemorrhage, left eye (principal); H04.122 Dry eye syndrome of left lacrimal gland; R20.0 Anesthesia of skin; R20.2 Paresthesia of skin; I25.10 Atherosclerotic heart disease of native coronary artery without angina pectoris; I10 Essential (primary) hypertension; E78.00 Pure hypercholesterolemia, unspecified; G47.30 Sleep apnea, unspecified; K57.92 Diverticulitis of intestine, part unspecified, without perforation or abscess without bleeding; J45.909 Unspecified asthma, uncomplicated; K21.9 Gastro-esophageal reflux disease without esophagitis; Z85.528 Personal history of other malignant neoplasm of kidney; Z87.01 Personal history of pneumonia (recurrent); Z98.0 Intestinal bypass and anastomosis status; Z90.49 Acquired absence of other specified parts of digestive tract; Z88.1 Allergy status to other antibiotic agents; Z88.8 Allergy status to other drugs, medicaments and biological substances
CPT/HCPCS: 99282

== ENCOUNTER → 2024-11-12 07:29 | Outpatient (REF) | payer BC, SELFPAY ==
[2024-11-12 08:36] LABS: % Basophils 1.4 % (0-2); % Eosinophils 12.6 % (0-6); % Immature Granulocytes 0.6 % (0-0.5); % Monocytes 9.1 % (1.7-9.3); % Neutrophils 54.3 % (42.2-75.2); Absolute Basophils 0.1 10^3/uL (0-0.2); Absolute Eosinophils 1.3 10^3/uL (0-0.7); Absolute Immature Granulocytes 0.1 10^3/uL (0-0.05); Absolute Lymphocytes 2.3 10^3/uL (1.2-3.4); Absolute Monocytes 0.9 10^3/uL (0.1-0.6); Absolute Neutrophils 5.6 10^3/uL (1.4-6.5); Hematocrit 52.4 % (39.0-52.0); Hemoglobin 18.2 g/dL (13.0-18.0); Mean Corp Hgb Conc. 34.7 g/dL (33.0-37.0); Mean Corpuscular Hgb 30.5 pg (27.0-31.0); Mean Corpuscular Volume 87.8 fL (80.0-94.0); Mean Platelet Volume 10.5 fL (7.4-10.4); Nucleated Red Blood Cells % 0 % (-); Platelet Count 186 10^3/uL (130-400); Red Blood Cell Count 5.97 10^6/uL (4.70-6.10); Red Cell Dist. Width 13.1 % (11.5-14.5); White Blood Cell Count 10.3 10^3/uL (4.8-10.8)
[2024-11-12 08:58] LABS: Glycohemoglobin (HgbA1c) 8.1 % (4.0-5.6)
[2024-11-12 09:05] LABS: Microalbumin, Random Urine 0.7 mg/dl (0.6-1.7); Microalbumin/creatinine Ratio 10.7 mg/g
[2024-11-12 11:52] LABS: PSA, Total - Screen 0.58 ng/ml (0.0-4.0)
[2024-11-12 14:04] LABS: ALT (SGPT) 29 U/L (0-50); AST (SGOT) 30 U/L (17-59); Albumin 4.2 g/dl (3.5-5.0); Alkaline Phosphatase 71 U/L (38-126); Blood Urea Nitrogen 32 mg/dl (9-20); Calcium 9.6 mg/dl (8.4-10.2); Carbon Dioxide 26 mmol/L (22-30); Chloride 103 mmol/L (98-107); Glucose 152 mg/dl (70-99); HDL Cholesterol 33 mg/dl; LDL Cholesterol, Calculated 59 mg/dl; Sodium 138 mmol/L (135-145); Total Bilirubin 0.9 mg/dl (0.2-1.3); Total Cholesterol 110 mg/dl (50-199); Total Protein 7.1 g/dl (6.3-8.2); Triglyceride 91 mg/dl (10-149); Very Low Density Lipoprotein 18 mg/dl (0-30); eGFR > 60.00
== END ==
LOC: REG 07:29
PROVIDERS: ATTENDING PHYSICIAN Urology; FAMILY PHYSICIAN Family Medicine
DX: E11.69 Type 2 diabetes mellitus with other specified complication (principal); E78.00 Pure hypercholesterolemia, unspecified; I10 Essential (primary) hypertension; Z85.528 Personal history of other malignant neoplasm of kidney
CPT/HCPCS: 36415; 80053; 80061; 82043; 82570; 83036; 85025; G0103

== ENCOUNTER 2024-12-30 06:18 | Day surgery (SDC) | payer BC, SELFPAY ==
[2024-12-30 12:05] LABS: Glucose - Point of Care 223 mg/dl (70-99)
== END 2024-12-30 13:33 | disposition home or self-care (01) ==
LOC: GI 06:18
PROVIDERS: ATTENDING PHYSICIAN Internal Medicine; FAMILY PHYSICIAN Family Medicine
DX: Z12.11 Encounter for screening for malignant neoplasm of colon (principal); K64.8 Other hemorrhoids; Z98.0 Intestinal bypass and anastomosis status; K57.30 Diverticulosis of large intestine without perforation or abscess without bleeding; R12 Heartburn; K31.7 Polyp of stomach and duodenum; K22.89 Other specified disease of esophagus; K29.70 Gastritis, unspecified, without bleeding; K44.9 Diaphragmatic hernia without obstruction or gangrene; D12.3 Benign neoplasm of transverse colon; K63.5 Polyp of colon; K31.89 Other diseases of stomach and duodenum; Z86.0100 Personal history of colon polyps, unspecified; K20.80 Other esophagitis without bleeding
CPT/HCPCS: 43251; 45385; 45380; 43239; 82962; 88305; 88313; 88342

== ENCOUNTER → 2025-04-05 07:07 | Outpatient (REF) | payer BC, SELFPAY ==
[2025-04-05 08:49] LABS: ALT (SGPT) 27 U/L (0-50); AST (SGOT) 19 U/L (17-59); Albumin 4.2 g/dl (3.5-5.0); Alkaline Phosphatase 82 U/L (38-126); Blood Urea Nitrogen 37 mg/dl (9-20); Calcium 9.7 mg/dl (8.4-10.2); Carbon Dioxide 31 mmol/L (22-30); Chloride 97 mmol/L (98-107); Glucose 263 mg/dl (70-99); Potassium 4.2 mmol/L (3.5-5.1); Sodium 133 mmol/L (135-145); Total Protein 7.3 g/dl (6.3-8.2); eGFR > 60.00
[2025-04-05 09:46] LABS: Microalb - Urine Creatinine 78.400 mg/dl
[2025-04-05 09:55] LABS: Microalbumin, Random Urine 0.7 mg/dl (0.6-1.7)
[2025-04-05 10:35] LABS: Glycohemoglobin (HgbA1c) 9.6 % (4.0-5.9)
== END ==
LOC: REG 07:07
PROVIDERS: ATTENDING PHYSICIAN Family Medicine; REFERRING PHYSICIAN Urology
DX: E11.69 Type 2 diabetes mellitus with other specified complication (principal)
CPT/HCPCS: 36415; 80053; 82043; 82570; 83036